=== PATIENT | female | born 1950 | race Two or more races ===

== ENCOUNTER 2017-07-14 15:10 | Inpatient (IN) | payer MEDICARE, BC ==
[~2017-07-14] VITALS: Ht 167.6 cm; Wt 74.8 kg
--- NOTE | 2017-07-14 15:10 | NUR ---
PREENTS TO ER C/O NON RADIATING LEFT SIDED CHEST PAIN SINCE HALF AN HOUR AGO. A/OX 4. BREATHING EVEN AND UNLABORED. NO SOB, NAD, VITALS STABLE. SKIN IS WARM AND DRY. SAFETY AND COMFORT MEASURES IN PLACE. AWAITING MD ORDERS.
--- NOTE | 2017-07-14 15:36 | NUR ---
NEW IV STARTED ON RAC, 18G. BLOOD DRAWN AND SENT TO LAB.
[2017-07-14] MEDS ORDERED: NITROGLYCERIN 0.4 MG/TAB BOTTLE ONE (15:56)
[2017-07-14] MEDS ORDERED: ASPIRIN 325 MG TABLET ONE (15:56)
[2017-07-14 15:58] LABS: BASOPHILS % (AUTO) 0.3 % (0.0-2.0); EOSINOPHILS % (AUTO) 4.6 % (0.0-6.0); HEMATOCRIT 35 % (33-45); HEMOGLOBIN 11.8 g/dL (11.5-14.8); LYMPHOCYTES # (AUTO) 1.7 /CMM (0.8-4.8); LYMPHOCYTES % (AUTO) 29.4 % (20.0-44.0); MEAN CORPUSCULAR HGB CONC 34 g/dl (31.0-36.0); MEAN CORPUSCULAR VOLUME 92 fL (82-100); MONOCYTES # (AUTO) 0.4 /CMM (0.1-1.30); MONOCYTES % (AUTO) 7.5 % (2.0-12.0); NEUTROPHILS # (AUTO) 3.4 /CMM (1.8-8.9); NEUTROPHILS % (AUTO) 58.2 % (43.0-81.0); PLATELET COUNT (AUTO) 193 /CMM (150-450); RDW COEFFICIENT OF VARIATION 15.9 (11.5-15.0); RED BLOOD CELL COUNT(AUTO) 3.77 MIL/uL (4.0-5.2); WHITE BLOOD COUNT (AUTO) 5.8 K/uL (4.3-11.0)
[2017-07-14] MEDS ORDERED: ASPIRIN 325 MG TABLET PO ONE (16:00)
[2017-07-14] MEDS ORDERED: NITROGLYCERIN 0.4 MG/TAB BOTTLE SL ONE ×2 (16:00→18:30)
--- NOTE | 2017-07-14 16:05 | NUR ---
PATIENT CONTINUES TO HAVE CHEST PAIN. BP 129/78 AFTER FIRST DOSE OF NITRO. SECOND DOSE OF NITRO ADMINISTERED. WILL REASSESS.
[2017-07-14 16:08] LABS: CARBON DIOXIDE 27 mmol/L (21-32); CHLORIDE 104 mmol/L (98-107); CREATININE 0.9 mg/dL (0.6-1.3); GLUCOSE 94 mg/dL (74-106); POTASSIUM 3.2 mmol/L (3.5-5.1); SODIUM SERUM 141 mmol/L (136-145); UREA NITROGEN, BLOOD 15 mg/dL (7-18)
--- NOTE | 2017-07-14 16:10 | NUR ---
PATIENT STILL C/O CHEST PAIN, SLIGHTLY MORE RELIEVED. 3RD DOSE OF NITRO GIVEN ORALLY. BP 121/64.
[2017-07-14 16:17] LABS: D-DIMER 3.93 mg/L(FEU (0.17-0.50); INR 0.92 (0.87-1.13); TROPONIN I < 0.017 ng/mL (0.00-0.056)
[2017-07-14] MEDS ORDERED: IV NS 0.9% 1,000 ML IV ONE (16:30)
[2017-07-14] MEDS ORDERED: IOHEXOL-350 100 ML VIAL IV ONE (16:37)
[2017-07-14] MEDS ORDERED: IV NS 0.9% 500 ML IV ONE (16:37)
[2017-07-14] MEDS ORDERED: CT SWABBABLE VALVE TRANS SET 1 EA INFUS.SET MC ONE (16:37)
--- NOTE | 2017-07-14 16:38 | NUR ---
PATIENT TAKEN TO CT VIA STRETCHER.
--- NOTE | 2017-07-14 16:47 | NUR ---
PATIENT RETURNED FROM RADIOLOGY VIA STRETCHER IN STABLE CONDITION.
--- NOTE | 2017-07-14 17:00 | NUR ---
PATIENT DENIES ANY CHEST PAIN AT THIS TIME. MD VALENZUELA
[2017-07-14] MEDS ORDERED: FELO5TAB4 PO (17:46)
[2017-07-14] MEDS ORDERED: ASPI-1169 PO (17:46)
[2017-07-14] MEDS ORDERED: ONDANSETRON HCL/PF 4 MG/2 ML VIAL IVP PRN (18:30)
[2017-07-14] MEDS ORDERED: HYDROCODONE/APAP 5/325MG 1 EACH TABLET PO PRN (18:30)
[2017-07-14] MEDS ORDERED: MAGNESIUM HYDROXIDE 30 ML UDC PO PRN (18:30)
[2017-07-14] MEDS ORDERED: ACETAMINOPHEN 325 MG TABLET PO PRN (18:30)
[2017-07-14] MEDS ORDERED: MORPHINE SULFATE INJ 4 MG/ML DISP.SYRIN IV PRN (18:30)
[2017-07-14] MEDS ORDERED: Z GUARD REMEDY 2 OZ OINT TP PRN (18:30)
[2017-07-14] MEDS ORDERED: ALPRAZOLAM 0.25 MG TABLET PO PRN (18:30)
[2017-07-14] MEDS ORDERED: ZOLPIDEM TARTRATE 5 MG TABLET PO PRN (18:30)
[2017-07-14] MEDS ORDERED: MAG HYDROX/AL HYDROX/SIMETH 30 ML UDC PO PRN (18:30)
--- NOTE | 2017-07-14 19:15 | NUR ---
REPORT GIVEN TO JAH VACA FOR SAV.
--- NOTE | 2017-07-14 19:17 | NUR ---
RECEIVED REPORT FROM NOLA VANESSA FOR SAV.
--- NOTE | 2017-07-14 19:26 | NUR ---
REPORT GIVEN TO LAKIA VACA FOR SAV UPON ADMISSION.
[2017-07-14 20:00] VITALS: BP 135/88
[2017-07-14] MEDS: IV NS 0.9% 1,000 ML IV PRN (20:18)
--- NOTE | 2017-07-14 20:28 | NUR ---
MS MACHINE CLEANER NOTE Patient from ED for chest pain arrived to our unit around 2000 hrs, AAOx4, breathing on RA with no SOB, and no signs of acute distress, currently no chest pain. Vital signs are WNL. Initial physical assessment is unremarkable. Current/past medical history and family history was obtained from patient. NS at 75 ml/hr was connected to peripheral right AC 18g. Patient is ambulatory, walked to the bathroom with stand-by assist, gait is stable. Patient educated/oriented to unit, room, and equipment. Bed is in low/locked position, two side rails up, call reyes within reach. New orders acknowledged and carried out. Will continue to monitor.
--- NOTE | 2017-07-14 20:55 | NUR ---
MS RN NOTE - K+ Patient's potassium came back 3.2. Spoke with Dr. Cox over the phone and took verbal order to replace potassium with one time dose of PO 40 mEq K-Dur. Order placed in EMAR, acknowledged, and will be administered.
[2017-07-14 21:00] VITALS: BP 135/88
[2017-07-14] MEDS ORDERED: POTASSIUM CHLORIDE 20 MEQ TAB.PRT.SR PO ONE (21:00)
[2017-07-14] MEDS ORDERED: ENOXAPARIN SODIUM 40 MG/0.4 ML DISP.SYRIN SQ SCH (21:00)
[2017-07-15] VITALS: BP 119/75
[2017-07-15 04:00] VITALS: BP 119/80
[2017-07-15 06:46] LABS: BASOPHILS % (AUTO) 0.1 % (0.0-2.0); EOSINOPHILS % (AUTO) 5.4 % (0.0-6.0); HEMATOCRIT 36 % (33-45); HEMOGLOBIN 11.9 g/dL (11.5-14.8); LYMPHOCYTES # (AUTO) 1.6 /CMM (0.8-4.8); LYMPHOCYTES % (AUTO) 35.1 % (20.0-44.0); MEAN CORPUSCULAR HGB CONC 33 g/dl (31.0-36.0); MEAN CORPUSCULAR VOLUME 93 fL (82-100); MONOCYTES # (AUTO) 0.4 /CMM (0.1-1.30); MONOCYTES % (AUTO) 7.9 % (2.0-12.0); NEUTROPHILS # (AUTO) 2.3 /CMM (1.8-8.9); NEUTROPHILS % (AUTO) 51.5 % (43.0-81.0); PLATELET COUNT (AUTO) 163 /CMM (150-450); RDW COEFFICIENT OF VARIATION 15.9 (11.5-15.0); RED BLOOD CELL COUNT(AUTO) 3.84 MIL/uL (4.0-5.2); WHITE BLOOD COUNT (AUTO) 4.6 K/uL (4.3-11.0)
--- NOTE | 2017-07-15 06:49 | NUR ---
MS RN CLOSING NOTE Patient was seen sitting up in bed AAOx4, breathing on RA with no SOB, telemonitor shows NSR, no signs of acute distress. Vital signs WNL this shift, no events overnight, no chest pain overnight or this AM. Patient ambulated to bathroom independently with steady gait. NS at 75 ml/hr is running through right AC 18g. Bed is in low/locked position, two side rails up, call reyes within reach. Prescribed orders and patient needs met. Will endorse patient care to day shift nurse.
[2017-07-15 07:12] LABS: CALCIUM, SERUM 8.3 mg/dL (8.5-10.1); CREATININE 0.8 mg/dL (0.6-1.3); MAGNESIUM 1.9 mg/dL (1.8-2.4); PHOSPHORUS 3.5 mg/dL (2.5-4.9); POTASSIUM 4.5 mmol/L (3.5-5.1)
--- NOTE | 2017-07-15 07:25 | NUR ---
FISH FLIPPER NOTES PATIENT RECEIVED RESTING INSIDE ROOM, AWAKE, ALERT AND ORIENTED, VERBALLY RESPONSIVE AND RESPONDS TO VERBAL AND TACTILE STIMULI. PATIENT BREATHING EVEN AND UNLABORED. NO SOB OR ACUTE DISTRESS NOTED. PATIENT DENIES ANY PAIN OR DISCOMFORT AT THIS TIME. NO CHANGES IN LOC NOTED. IV SITE INTACT AND PATENT. RECEIVED REPORT THAT PATIENT NPO S[place]CE [place], AWAITING FOR CARDIO CONSULT. PATIENT AWARE AND VERBALIZED UNDERSTANDING. WILL CONTINUE TO MONITOR. BED LOCKED AND IN LOW POSITION. BILATERAL UPPER SIDE RAILS UP AND LOCKED. CALL LIGHT WITHIN EASY REACH
[2017-07-15] MEDS ORDERED: REGADENOSON 0.4 MG/5 ML DISP.SYRIN IVP ONE (07:30)
[2017-07-15 08:00] VITALS: BP 136/86
[2017-07-15 08:13] LABS: BILIRUBIN,TOTAL 0.3 mg/dL (0.2-1.0)
[2017-07-15 08:15] LABS: THYROID STIMULATING HORMONE 2.789 uIU/mL (0.358-3.74)
[2017-07-15] MEDS ORDERED: FELODIPINE 2.5 MG TAB.SR.24H PO SCH (09:00)
[2017-07-15] MEDS ORDERED: ASPIRIN 81 MG TAB.CHEW PO SCH ×2 (09:00)
[2017-07-15] MEDS: IV NS 0.9% 1,000 ML IV PRN (12:38)
[2017-07-15 16:00] VITALS: BP 134/69
--- NOTE | 2017-07-15 18:10 | NUR ---
MS RN NOTES DR. LARKIN WITH ORDER FOR DISCHARGE, NOTED AND CARRIED OUT. PATIENT FOR DISCHARGE HOME. DISCHARGE INSTRUCTIONS PROVIDED AND PATIENT VERBALIZED UNDERSTANDING. ALL BELONGINGS COMPLETE AND ACCOUNTED FOR. NO REPORT OF MISSING INVENTORY. REMINDED PATIENT TO SCHEDULE FOLLOW-UP APPOINTMENT WITH PRIMARY CARE PHYSICIAN AND VERBALIZED UNDERSTANDING. IV REMOVED, PRESSURE DRESSING PLACED. PATIENT LEFT UNIT AT 1800 VIA WHEELCHAIR, ESCORTED OUTSIDE HOSPITAL AND ASSISTED WITH DISCHARGE. PATIENT LEFT VIA PRIVATE CAR, DRIVEN BY DAUGHTER. NO EPISODE OF FALL OR INJURY DURING DISCHARGE. AWARE.
== END 2017-07-15 17:56 | disposition home or self-care (01) | DRG 313 ==
LOC: ER 15:13 → TELE 19:23 → MED 07-15 09:52
PROVIDERS: ADMIT Internal Medicine; ATTEND Internal Medicine
DX: R07.89 Other chest pain (principal); E44.1 Mild protein-calorie malnutrition; E78.5 Hyperlipidemia, unspecified; I10 Essential (primary) hypertension; F41.9 Anxiety disorder, unspecified; H54.8 Legal blindness, as defined in USA; M89.8X9 Other specified disorders of bone, unspecified site; Z68.26 Body mass index [BMI] 26.0-26.9, adult; R91.8 Other nonspecific abnormal finding of lung field
CPT/HCPCS: 36415; 71045-TC; 80048-TC; 80076-TC; 82306; 82728-TC; 82746; 83540-TC; 83615-TC; 83735-TC; 84100-TC; 84439-TC; 84443-TC; 84484-TC; 85025-TC; 85378-TC; 85730-TC; 87081-TC; 93307-TC; 93970-TC; A4606; A9502; J1650; J2785; J7030; J7040; Q9967; Z7610